=== PATIENT | female | born 1965 | race Caucasian/White ===

== ENCOUNTER 2024-10-23 14:27 | Outpatient (CLI) | payer OTHER ==
[2024-10-23 17:23] LABS: Analyzer IN Cardio CS ER; Base Excess (BEa) -0.6 mEq/L (-2.0 to +3.0); Calcium, Ionized (arterial) 1.21 mmol/L (1.12-1.30); Carboxyhemoglobin (COHb) 0.8 gm% (0.0-3.0); Hematocrit-ABG 39 % (36.0-47.0); Hemoglobin (Hb) 13.2 g/dL (12.0-16.0); O2 Tension (PaO2), arterial 63.4 mmHg (> 80.0); Potassium - ABG Lab 4.12 mmol/L (3.70-5.30); Puncture Site Right Brachial art; pH, Arterial 7.363 (7.35-7.45)
== END 2024-10-23 14:28 | disposition home or self-care (01) ==
LOC: CSHCP 14:27
PROVIDERS: ATTEND Internal Medicine Critical Care Medicine
DX: J44.9 Chronic obstructive pulmonary disease, unspecified (principal)
CPT/HCPCS: 36600; 82805; 94060; 94664; 94726; 94729; 94760